=== PATIENT | female | born 2000 | race Caucasian/White ===

== ENCOUNTER 2020-02-19 07:29 | Day surgery (SDC) | payer OTHER ==
[~2020-02-19] VITALS: Ht 160 cm; Wt 65.0 kg
[~2020-02-19 07:29] MED LIST: LIDOCAINE/PF 1%-EPI 1:200K, 30 ML ONE; ROPIvacaine/PF 0.5%, 30 ML ONE
[2020-02-19 07:56] VITALS: BP 122/87
[2020-02-19] MEDS ORDERED: LACTATED RINGERS 1,000 ML IV SCH (08:02)
[2020-02-19] MEDS ORDERED: CHLORHEXIDINE 15 ML UDC ONE (08:05)
[2020-02-19] MEDS ORDERED: no meds per pt (08:15)
[2020-02-19] MEDS ORDERED: CHLORHEXIDINE 15 ML UDC MM ONE (08:30)
[2020-02-19] MEDS ORDERED: KETOROLAC 30 MG/1 ML ONE (08:45)
[2020-02-19] MEDS ORDERED: MIDAZOLAM 1 MG/ML, 2ML ONE (08:55)
[2020-02-19] MEDS ORDERED: FENTANYL PF 250 MCG/5ML ONE (08:55)
[2020-02-19] MEDS ORDERED: ROPIvacaine/PF 0.2%, 20 ML ONE (08:56)
[2020-02-19] MEDS ORDERED: DEXAMETHASONE 4 MG/ML, 1ML ONE ×2 (08:57→10:30)
[2020-02-19] MEDS ORDERED: ONDANSETRON 2MG/ML, 2ML ONE ×2 (08:57→10:30)
[2020-02-19] MEDS ORDERED: PROPOFOL 10 MG/ML, 20ML ONE ×2 (08:57→10:30)
[2020-02-19] MEDS ORDERED: CEFAZOLIN 1,000 MG ONE (08:57)
[2020-02-19] MEDS ORDERED: HALOPERIDOL 5 MG/ML IV PRN (10:00)
[2020-02-19] MEDS ORDERED: morphine SULFATE 10 MG/ML, 1ML IVPush PRN (10:00)
[2020-02-19] MEDS ORDERED: OXYcodone 5 MG/5 ML ORAL.SOL UDC PO PRN (10:00)
[2020-02-19] MEDS ORDERED: HYDROmorphone 1 MG/ML, 1ML INJ IVPush PRN (10:00)
[2020-02-19] MEDS ORDERED: MEPERIDINE/PF 25MG/0.5ML IVPush PRN (10:00)
[2020-02-19] MEDS ORDERED: PROMETHAZINE 25 MG/ML, 1ML IVPush PRN (10:00)
[2020-02-19] MEDS ORDERED: ACETAMINOPHEN 325 MG TABLET PO PRN (10:00)
[2020-02-19] MEDS ORDERED: FENTANYL PF 100 MCG/2ML IV PRN (10:00)
[2020-02-19] MEDS ORDERED: ROCURONIUM 10 MG/ML,10ML ONE (10:30)
[2020-02-19] MEDS ORDERED: CEFOTETAN 1 GM ONE (10:30)
[2020-02-19] MEDS ORDERED: SUCCINYLCHOLINE 20 MG/ML, 10ML ONE (10:30)
[2020-02-19] MEDS ORDERED: OXYcodone 5 MG/5 ML ORAL.SOL UDC ONE (11:12)
[2020-02-19] MEDS ORDERED: ACETAMINOPHEN 650 MG/20.3 ML UDC ONE (11:12)
[2020-02-19] MEDS ORDERED: FENTANYL PF 100 MCG/2ML ONE (11:12)
== END 2020-02-19 13:10 | disposition home or self-care (01) ==
LOC: OUT 07:29
PROVIDERS: ATTEND Orthopaedic Surgery
DX: S83.511A Sprain of anterior cruciate ligament of right knee, initial encounter (principal); Z11.59 Encounter for screening for other viral diseases; S83.281A Other tear of lateral meniscus, current injury, right knee, initial encounter; J45.909 Unspecified asthma, uncomplicated; Z79.891 Long term (current) use of opiate analgesic; Z79.899 Other long term (current) drug therapy; Z88.0 Allergy status to penicillin; Z82.61 Family history of arthritis; X58.XXXA Exposure to other specified factors, initial encounter; Y93.23 Activity, snow (alpine) (downhill) skiing, snowboarding, sledding, tobogganing and snow tubing; Y92.89 Other specified places as the place of occurrence of the external cause; Y99.8 Other external cause status
CPT/HCPCS: 29881; 29888; 64447; 81025; C1713; C1762; J0330; J0690; J1100; J1885; J2250; J2405; J2704; J2795; J3010; J3490; J7120; U0001